=== PATIENT | male | born 1990 | race Caucasian/White ===

== ENCOUNTER 2021-10-01 13:01 | Emergency (ER) | payer MEDICAID, SELFPAY ==
[~2021-10-01] VITALS: Ht 177.8 cm; Wt 108.9 kg
[2021-10-01 13:18] VITALS: BP_SYST 156
[2021-10-01] MEDS ORDERED: ONDANSETRON HCL 4 MG/2 ML VIAL IVP ONE (13:30)
[2021-10-01] MEDS ORDERED: NACL 0.9% 1,000 ML IV ONE (13:30)
[2021-10-01 13:53] LABS: BASOPHILS % (AUTO) 0.3 % (0.0-2.0); EOSINOPHILS # (AUTO) 0.1 K/uL (0.0-0.4); EOSINOPHILS % (AUTO) 0.8 % (0.0-4.0); HEMATOCRIT 46.7 % (36-54); LYMPHOCYTES # (AUTO) 1.1 K/uL (1.0-5.5); LYMPHOCYTES % (AUTO) 9.5 % (20.5-51.5); MEAN CORPUSCULAR HEMOGLOBIN 29 pg (27-31); MEAN CORPUSCULAR HGB CONC 34 % (32-36); MEAN CORPUSCULAR VOLUME 84 fL (79.0-98.0); MONOCYTES # (AUTO) 0.5 K/uL (0.0-1.0); MONOCYTES % (AUTO) 4.3 % (1.7-9.3); NEUTROPHILS % (AUTO) 85.1 % (40.0-70.0); PLATELET COUNT (AUTO) 151 K/uL (130-430); RED BLOOD CELL COUNT(AUTO) 5.59 MIL/uL (4.2-6.2); RED CELL DISTRIBUTION WIDTH 13.8 % (9.0-15.0); WHITE BLOOD COUNT (AUTO) 11.8 K/uL (4.8-10.8)
[2021-10-01 14:03] VITALS: BP_SYST 120
[2021-10-01 14:05] LABS: CALCIUM 9.6 mg/dL (8.4-11.0); CREATININE 0.89 mg/dL (0.55-1.30); POTASSIUM 3.8 mmol/L (3.5-5.1)
[2021-10-01 14:10] LABS: ALBUMIN 4.1 g/dL (3.4-4.8); TOTAL BILIRUBIN 0.5 mg/dL (0.0-1.0)
[2021-10-01] MEDS ORDERED: DIPHENHYDRAMINE INJ 50 MG/ML VIAL IVP ONE (15:00)
[2021-10-01] MEDS ORDERED: METOCLOPRAMIDE HCL 10 MG/2 ML VIAL IVP ONE (15:00)
[2021-10-01 15:17] LABS: BILIRUBIN,URINE NEGATIVE (NEGATIVE); BLOOD, URINE NEGATIVE (NEGATIVE); CLARITY/URINE CLEAR (CLEAR); COLOR,URINE YELLOW (YELLOW); GLUCOSE,URINE NEGATIVE (NEGATIVE); KETONES,URINE NEGATIVE (NEGATIVE); LEUKOCYTE ESTERASE ,URINE NEGATIVE (NEGATIVE); NITRITE, URINE NEGATIVE (NEGATIVE); PROTEIN URINE NEGATIVE (NEGATIVE); UROBILINOGEN,URINE 0.2 (0.2-1.0)
[2021-10-01] MEDS ORDERED: DIPH25CA83 PO (16:52)
[2021-10-01] MEDS ORDERED: METO-290 PO (16:52)
== END 2021-10-01 18:45 | disposition home or self-care (01) ==
LOC: SED 13:01
DX: R11.2 Nausea with vomiting, unspecified (principal); Z88.8 Allergy status to other drugs, medicaments and biological substances; Z79.899 Other long term (current) drug therapy
CPT/HCPCS: 36415; 80053; 81003; 83690; 85025; 96361; 96374; 96375; 99284; J1200; J2405; J2765; J7030

== ENCOUNTER 2022-05-06 17:34 | Emergency (ER) | payer MEDICAID ==
[~2022-05-06] VITALS: Ht 180.3 cm; Wt 113.4 kg
[~2022-05-06 17:34] MED LIST: DIPH25CA83 PO; METO-290 PO
[2022-05-06 17:35] VITALS: BP_SYST 129
--- NOTE | 2022-05-06 18:20 | NUR ---
Patient to ER bed 03 to gown for evaluation. Side rails up.
--- NOTE | 2022-05-06 18:35 | NUR ---
Dr Steele evaluating patient at bedside
[2022-05-06] MEDS ORDERED: ONDANSETRON 4 MG ODT TAB PO ONE (19:15)
[2022-05-06] MEDS ORDERED: NACL 0.9% 1,000 ML IV ONE (19:30)
[2022-05-06] MEDS ORDERED: HALOPERIDOL LACTATE 5 MG/ML VIAL IVP ONE (19:30)
[2022-05-06 19:39] LABS: BASOPHILS % (AUTO) 0.3 % (0.0-2.0); EOSINOPHILS % (AUTO) 0.1 % (0.0-4.0); HEMOGLOBIN 15.7 g/dL (14.0-18.0); LYMPHOCYTES # (AUTO) 1.4 K/uL (1.0-5.5); LYMPHOCYTES % (AUTO) 13.2 % (20.5-51.5); MEAN CORPUSCULAR HEMOGLOBIN 29 pg (27-31); MEAN CORPUSCULAR HGB CONC 34 % (32-36); MEAN CORPUSCULAR VOLUME 84 fL (79.0-98.0); MONOCYTES # (AUTO) 0.7 K/uL (0.0-1.0); MONOCYTES % (AUTO) 6.5 % (1.7-9.3); NEUTROPHILS # (AUTO) 8.3 K/uL (1.8-7.7); NEUTROPHILS % (AUTO) 79.9 % (40.0-70.0); PLATELET COUNT (AUTO) 172 K/uL (130-430); RED CELL DISTRIBUTION WIDTH 13.5 % (9.0-15.0); WHITE BLOOD COUNT (AUTO) 10.4 K/uL (4.8-10.8)
[2022-05-06 19:44] LABS: CALCIUM 9.3 mg/dL (8.4-11.0); CREATININE 1.23 mg/dL (0.55-1.30); POTASSIUM 4.1 mmol/L (3.5-5.1)
--- NOTE | 2022-05-06 20:00 | NUR ---
PT COME IN WITH COMPLAINT OF NAUSEA AND VOMITING. EXPR ISSUE DAILY GIVING HIS HIV MEDICATION. PT IS IN BED WITH BED LOCKED AND RAILS UP, BED LOWERED. PT VS ARE WITHIN NORMAL LIMITS. ADM MEDICATIONS WILL CONTINUE TO MONITOR
[2022-05-06 20:04] LABS: ALBUMIN 4.3 g/dL (3.4-4.8); TOTAL BILIRUBIN 0.8 mg/dL (0.0-1.0)
[2022-05-06] MEDS ORDERED: CAPS60CR4 TP (20:48)
[2022-05-06] MEDS ORDERED: FAMO-132 PO (20:48)
[2022-05-06] MEDS ORDERED: ONDA-8 TL (20:48)
[2022-05-06] MEDS ORDERED: SUCR1TAB78 PO (20:48)
--- NOTE | 2022-05-06 21:46 | NUR ---
Patient given written and verbal discharge instructions and verbalizes understanding. ER MD discussed with patient the results and treatment provided. Patient in stable condition. ID arm band removed. IV catheter removed intact and dressing applied, no active bleeding. Rx of CAPSAICIN,FAMOTADINE,ZOFRAN,SUCRALFATE given. Patient educated on pain management and to follow up with PMD. Pain Scale 0/10. Opportunity for questions provided and answered. Medication side effect fact sheet provided.
[2022-05-06 21:49] VITALS: BP_SYST 138
== END 2022-05-06 21:49 | disposition home or self-care (01) ==
LOC: SED 17:34
DX: F12.188 Cannabis abuse with other cannabis-induced disorder (principal); K21.9 Gastro-esophageal reflux disease without esophagitis; R11.2 Nausea with vomiting, unspecified; Z83.0 Family history of human immunodeficiency virus [HIV] disease; Z84.89 Family history of other specified conditions; Z88.1 Allergy status to other antibiotic agents; Z79.899 Other long term (current) drug therapy
CPT/HCPCS: 36415; 71045; 80053; 83690; 85025; 96361; 96374; 99284; J1630; J7030; Q0162

== ENCOUNTER 2022-06-25 12:39 | Emergency (ER) | payer MEDICAID ==
[~2022-06-25] VITALS: Ht 180.3 cm; Wt 113.4 kg
[~2022-06-25 12:39] MED LIST changes: +CAPS60CR4 TP; +FAMO-132 PO; +ONDA-8 TL; +SUCR1TAB78 PO
[2022-06-25 12:51] VITALS: BP_SYST 154
[2022-06-25 15:39] LABS: BASOPHILS % (AUTO) 0.6 % (0.0-2.0); EOSINOPHILS # (AUTO) 0.1 K/uL (0.0-0.4); EOSINOPHILS % (AUTO) 1.1 % (0.0-4.0); HEMATOCRIT 43.3 % (36-54); HEMOGLOBIN 14.7 g/dL (14.0-18.0); LYMPHOCYTES # (AUTO) 1.3 K/uL (1.0-5.5); LYMPHOCYTES % (AUTO) 20.9 % (20.5-51.5); MEAN CORPUSCULAR HEMOGLOBIN 29 pg (27-31); MEAN CORPUSCULAR HGB CONC 34 % (32-36); MEAN CORPUSCULAR VOLUME 84 fL (79.0-98.0); MONOCYTES # (AUTO) 0.3 K/uL (0.0-1.0); MONOCYTES % (AUTO) 4.5 % (1.7-9.3); NEUTROPHILS # (AUTO) 4.5 K/uL (1.8-7.7); NEUTROPHILS % (AUTO) 72.9 % (40.0-70.0); PLATELET COUNT (AUTO) 157 K/uL (130-430); RED BLOOD CELL COUNT(AUTO) 5.17 MIL/uL (4.2-6.2); RED CELL DISTRIBUTION WIDTH 13.8 % (9.0-15.0); WHITE BLOOD COUNT (AUTO) 6.2 K/uL (4.8-10.8)
--- NOTE | 2022-06-25 15:42 | NUR ---
DR MACKENZIE OUT TO TRIAGE TO EVALUATE PT.
[2022-06-25] MEDS ORDERED: METO-290 PO ×2 (15:53→16:05)
[2022-06-25] MEDS ORDERED: MAG HYDROX/AL HYDROX/SIMETH 30 ML, LIDOCAINE VISCOUS 2% 15ML (PO) 15 ML, DICYCLOMINE HC... PO ONE ×3 (16:00)
[2022-06-25] MEDS ORDERED: KETOROLAC TROMETHAMINE 30 MG VIAL IM ONE (16:00)
--- NOTE | 2022-06-25 16:04 | NUR ---
BROUGHT BACK TO BED #4 AND REPORT GIVEN TO TERRY
--- NOTE | 2022-06-25 16:10 | NUR ---
PT CAME IN FROM HOME C/O N/V AND ABD PAIN SINCE THURSDAY. HAS BEEN SEEN AT TWO OTHER HOSPITALS. PT IS AMULATORY, AOX4
[2022-06-25 16:22] LABS: CALCIUM 9.3 mg/dL (8.4-11.0); CREATININE 0.89 mg/dL (0.55-1.30); POTASSIUM 3.5 mmol/L (3.5-5.1)
[2022-06-25 16:26] VITALS: BP_SYST 154
--- NOTE | 2022-06-25 16:27 | NUR ---
Patient given written and verbal discharge instructions and verbalizes understanding. ER MD discussed with patient the results and treatment provided. Patient in stable condition. ID arm band removed. Rx of REGLAN given. Patient educated on pain management and to follow up with PMD. Pain Scale 0/10. Opportunity for questions provided and answered. Medication side effect fact sheet provided.
[2022-06-25 16:33] LABS: ALBUMIN 4.3 g/dL (3.4-4.8); TOTAL BILIRUBIN 0.6 mg/dL (0.0-1.0)
== END 2022-06-25 16:27 | disposition home or self-care (01) ==
LOC: SED 12:39
DX: K21.9 Gastro-esophageal reflux disease without esophagitis (principal); K29.70 Gastritis, unspecified, without bleeding; R10.13 Epigastric pain; R11.2 Nausea with vomiting, unspecified; Z88.1 Allergy status to other antibiotic agents; Z79.899 Other long term (current) drug therapy
CPT/HCPCS: 99283; 80053; 83690; 85025; 36415; 96372; J2001; J1885

== ENCOUNTER 2022-10-04 10:26 | Emergency (ER) | payer MEDICAID ==
[~2022-10-04] VITALS: Ht 180.3 cm; Wt 113.4 kg
[~2022-10-04 10:26] MED LIST changes: +SUCR1TAB2 PO; -SUCR1TAB78 PO
[2022-10-04 10:35] VITALS: BP_SYST 143
--- NOTE | 2022-10-04 10:50 | NUR ---
Patient to ER bed 5 to gown for evaluation. Side rails up. Report given to DODIE MCGRATH.
--- NOTE | 2022-10-04 10:55 | NUR ---
DR. SYKES AT BEDSIDE TO ASSESS PT.
[2022-10-04] MEDS ORDERED: NACL 0.9% 1,000 ML IV ONE (11:00)
[2022-10-04] MEDS ORDERED: ONDANSETRON HCL 4 MG/2 ML VIAL IVP ONE (11:00)
--- NOTE | 2022-10-04 11:00 | NUR ---
RECEIVED PT FROM RAMILA HA. PT BIBS FOR C/O N/V. PT STATES HE JUST LEFT [facility] WITH THE SAME COMPLAINTS BUT WAS NOT TREATED WELL. PT STATES HE HAS HIV AND IS IMMUNCOMPROMISED, GETTING SICK QUITE FREQUENTLY. PT IS AAOX4. NORMAL S1S2. RESP E/U. NO COUGH OR SOB NOTED. LUNG SOUNDS CTA. ABDOMEN ROUND, NONTENDER, NONDISTENDED. DENIES DIARRHEA, CONSTIPATION. STATES HIS STOMACH FEELS BAD. SIDERAILS UP X2.
--- NOTE | 2022-10-04 11:05 | NUR ---
# 20 gauge angiocath placed to LEFT HAND. Use of asceptic technique. Opsite placed over site. Blood return noted. Flushed with 10 cc of normal saline. No evidence of infiltration noted. Patient tolerated well.
--- NOTE | 2022-10-04 11:19 | NUR ---
ZOFRAN IVP GIVEN FOR N/V, NS 1000 ML BOLUS INITIATED, TO BE COMPLETED AT 1219. PT DENIES PAIN.
[2022-10-04 11:29] LABS: BASOPHILS % (AUTO) 0.1 % (0.0-2.0); HEMOGLOBIN 16.4 g/dL (14.0-18.0); LYMPHOCYTES # (AUTO) 0.8 K/uL (1.0-5.5); LYMPHOCYTES % (AUTO) 5.7 % (20.5-51.5); MEAN CORPUSCULAR HEMOGLOBIN 29 pg (27-31); MEAN CORPUSCULAR HGB CONC 35 % (32-36); MEAN CORPUSCULAR VOLUME 82 fL (79.0-98.0); MONOCYTES # (AUTO) 0.6 K/uL (0.0-1.0); MONOCYTES % (AUTO) 3.8 % (1.7-9.3); NEUTROPHILS # (AUTO) 13.4 K/uL (1.8-7.7); NEUTROPHILS % (AUTO) 90.4 % (40.0-70.0); PLATELET COUNT (AUTO) 201 K/uL (130-430); RED BLOOD CELL COUNT(AUTO) 5.73 MIL/uL (4.2-6.2); RED CELL DISTRIBUTION WIDTH 14.5 % (9.0-15.0); WHITE BLOOD COUNT (AUTO) 14.9 K/uL (4.8-10.8)
[2022-10-04 11:38] LABS: ANION GAP 12 (5-15); CALCIUM 9.5 mg/dL (8.4-11.0); CHLORIDE 95 mmol/L (98-107); CREATININE 1.41 mg/dL (0.55-1.30); GFR AFRICAN AMERICAN 74 mL/min (>90); GLUCOSE 149 mg/dL (70-99); UREA NITROGEN, BLOOD 28 mg/dL (8-21)
[2022-10-04 11:42] LABS: ALANINE AMINOTRANSFERASE 28 U/L (12-78); ALBUMIN 4.7 g/dL (3.4-4.8); AMYLASE 59 U/L (0-100); ASPARTATE AMINOTRANSFERASE 23 U/L (10-37); C-REACTIVE PROTEIN QUANT 0.7 mg/dL (0-0.5); LACTATE DEHYDROGENASE 153 U/L (85-227); LIPASE 126 U/L (73-393); TOTAL BILIRUBIN 0.9 mg/dL (0.0-1.0)
[2022-10-04] MEDS ORDERED: MAG HYDROX/AL HYDROX/SIMETH 30 ML, DICYCLOMINE HCL 20 MG, LIDOCAINE VISCOUS 2% 15ML (PO... PO ONE ×3 (11:45)
--- NOTE | 2022-10-04 11:45 | NUR ---
PT GIVEN SCHEDULED MED FOR GI UPSET. TOLERATED WELL.
[2022-10-04 11:51] LABS: ACETONE, SERUM NEGATIVE (NEGATIVE)
[2022-10-04 12:25] LABS: BILIRUBIN,URINE 1+ (NEGATIVE); GLUCOSE,URINE NEGATIVE (NEGATIVE); KETONES,URINE TRACE (NEGATIVE); LEUKOCYTE ESTERASE ,URINE NEGATIVE (NEGATIVE); NITRITE, URINE NEGATIVE (NEGATIVE); PROTEIN URINE TRACE (NEGATIVE); UROBILINOGEN,URINE 0.2 (0.2-1.0)
[2022-10-04 12:33] LABS: BLOOD, URINE TRACE (NEGATIVE)
[2022-10-04 12:34] LABS: CLARITY/URINE SLIGHTLY HAZY (CLEAR); COLOR,URINE YELLOW (YELLOW)
[2022-10-04 12:42] LABS: BACTERIA,URINE None Seen /HPF (None Seen); HYALINE CASTS, URINE 0-10 /LPF (None Seen); MUCUS,URINE 1+ /LPF (None Seen); WBC,URINE 0-3 /HPF (0-3)
--- NOTE | 2022-10-04 12:45 | NUR ---
DR. SYKES AT BEDSIDE TO DISCUSS POC.
[2022-10-04] MEDS ORDERED: OMEP-268 PO (13:21)
[2022-10-04] MEDS ORDERED: ONDA-8 TL (13:21)
[2022-10-04 13:36] VITALS: BP_SYST 135
--- NOTE | 2022-10-04 13:39 | NUR ---
Patient given written and verbal discharge instructions and verbalizes understanding. ER MD discussed with patient the results and treatment provided. Patient in stable condition. ID arm band removed. IV catheter removed intact and dressing applied, no active bleeding. Rx of OMEPRAZOLE,ONDANSETRON given. Patient educated on pain management and to follow up with PMD. Pain Scale 0/10. Opportunity for questions provided and answered. Medication side effect fact sheet provided.
== END 2022-10-04 13:36 | disposition home or self-care (01) ==
LOC: SED 10:26
DX: K29.70 Gastritis, unspecified, without bleeding (principal); R11.10 Vomiting, unspecified; K21.9 Gastro-esophageal reflux disease without esophagitis; Z88.1 Allergy status to other antibiotic agents; Z79.899 Other long term (current) drug therapy
CPT/HCPCS: 99284; 96374; 96361; 80053; 81000; 82009; 82150; 83615; 83690; 85025; 86140; 36415; 73502; 73560; 73630; 83605; J2001; J2405; J7030

== ENCOUNTER 2022-10-05 07:49 | Emergency (ER) | payer MEDICAID ==
[~2022-10-05] VITALS: Ht 180.3 cm; Wt 113.4 kg
[~2022-10-05 07:49] MED LIST changes: +OMEP-268 PO
[2022-10-05 08:04] VITALS: BP_SYST 165
--- NOTE | 2022-10-05 08:12 | NUR ---
Patient triaged and placed in waiting room. VSS and patient appears in no acute distress at this time. Accompanied by SELF, awaiting available bed, and MD notified of need for MSE.
[2022-10-05] MEDS ORDERED: HALOPERIDOL LACTATE 5 MG/ML VIAL IM ONE (08:30)
--- NOTE | 2022-10-05 10:05 | NUR ---
PT BIB SELF AWAKE AND ALERT, AOX4. NO SOB. PT C/O VOMITING STARTING TODAY. PT WAS IN ER HERE YESTERDAY FOR SAME REASON.
--- NOTE | 2022-10-05 10:10 | NUR ---
MD DR SYKES AT BEDSIDE
[2022-10-05 10:17] LABS: BASOPHILS % (AUTO) 0.2 % (0.0-2.0); EOSINOPHILS % (AUTO) 0.2 % (0.0-4.0); HEMATOCRIT 45.6 % (36-54); HEMOGLOBIN 15.6 g/dL (14.0-18.0); LYMPHOCYTES # (AUTO) 1.2 K/uL (1.0-5.5); LYMPHOCYTES % (AUTO) 8.2 % (20.5-51.5); MEAN CORPUSCULAR HEMOGLOBIN 29 pg (27-31); MEAN CORPUSCULAR HGB CONC 34 % (32-36); MEAN CORPUSCULAR VOLUME 83 fL (79.0-98.0); MONOCYTES # (AUTO) 0.7 K/uL (0.0-1.0); MONOCYTES % (AUTO) 4.8 % (1.7-9.3); NEUTROPHILS # (AUTO) 12.8 K/uL (1.8-7.7); NEUTROPHILS % (AUTO) 86.6 % (40.0-70.0); PLATELET COUNT (AUTO) 165 K/uL (130-430); RED BLOOD CELL COUNT(AUTO) 5.48 MIL/uL (4.2-6.2); RED CELL DISTRIBUTION WIDTH 14.3 % (9.0-15.0); WHITE BLOOD COUNT (AUTO) 14.8 K/uL (4.8-10.8)
[2022-10-05 10:43] VITALS: BP_SYST 165
--- NOTE | 2022-10-05 10:45 | NUR ---
Patient does not wish to proceed with medical care recommended by DR SYKES. Patient given information related to possible complications, up to and including , which could occur as a result of leaving hospital at this time. Patient verbalizes understanding of risks involved leaving against medical advice. Patient has signed AMA form.
[2022-10-05 10:56] LABS: ACETONE, SERUM NEGATIVE (NEGATIVE)
[2022-10-05 11:06] LABS: ANION GAP 10 (5-15); CALCIUM 8.9 mg/dL (8.4-11.0); CHLORIDE 99 mmol/L (98-107); CREATININE 1.03 mg/dL (0.55-1.30); GLUCOSE 124 mg/dL (70-99); UREA NITROGEN, BLOOD 25 mg/dL (8-21)
[2022-10-05 11:12] LABS: ALANINE AMINOTRANSFERASE 27 U/L (12-78); ALBUMIN 4.4 g/dL (3.4-4.8); AMYLASE 62 U/L (0-100); ASPARTATE AMINOTRANSFERASE 27 U/L (10-37); C-REACTIVE PROTEIN QUANT 0.4 mg/dL (0-0.5); LACTATE DEHYDROGENASE 174 U/L (85-227); LIPASE 156 U/L (73-393); TOTAL BILIRUBIN 0.9 mg/dL (0.0-1.0)
[2022-10-05 11:13] LABS: GFR AFRICAN AMERICAN 107 mL/min (>90)
== END 2022-10-05 10:43 | disposition left against medical advice (07) ==
LOC: SED 07:49
DX: R11.15 Cyclical vomiting syndrome unrelated to migraine (principal); R10.10 Upper abdominal pain, unspecified; K21.9 Gastro-esophageal reflux disease without esophagitis; Z88.1 Allergy status to other antibiotic agents; Z79.899 Other long term (current) drug therapy
CPT/HCPCS: 99284; 74176; 80053; 82009; 82150; 83615; 83690; 85025; 86140; 36415; 76376; 96372; 83605; J1630; J7030